=== PATIENT | male | born 1955 | race Caucasian/White ===

== ENCOUNTER 2017-09-04 14:46 | Emergency (ER) | payer OTHER ==
[~2017-09-04] VITALS: Ht 170.2 cm; Wt 89.0 kg
[2017-09-04] MEDS ORDERED: OXYB5TAB PO (17:19)
[2017-09-04 18:29] VITALS: BP 140/87
== END 2017-09-04 18:31 | disposition home or self-care (01) ==
LOC: ED 18:05
DX: S86.911A Strain of unspecified muscle(s) and tendon(s) at lower leg level, right leg, initial encounter (principal); X58.XXXA Exposure to other specified factors, initial encounter; Y93.89 Activity, other specified; Y99.8 Other external cause status; Y92.89 Other specified places as the place of occurrence of the external cause
CPT/HCPCS: 99284

== ENCOUNTER 2021-03-27 12:02 | Outpatient (CLI) | payer OTHER ==
[~2021-03-27 12:02] MED LIST: AMLO-150 PO; ATOR20TA37 PO; CEFD300C37 PO; METR500T PO; OXYB-39 PO
== END 2021-03-27 23:59 | disposition home or self-care (01) ==
LOC: RAD 12:02
PROVIDERS: ATTEND Urology
DX: N28.89 Other specified disorders of kidney and ureter (principal); I10 Essential (primary) hypertension; E78.5 Hyperlipidemia, unspecified; Z79.899 Other long term (current) drug therapy; Z85.528 Personal history of other malignant neoplasm of kidney
CPT/HCPCS: 71046; 74150